=== PATIENT | male | born 1995 | race Caucasian/White ===

== ENCOUNTER 2016-05-12 11:45 | Emergency (ER) | payer BC ==
--- NOTE | ~2016-05-12 | ER ---
PATIENT'S NAME: AISHA OCHOAIN Lois [facility] AGE: 20 Y [address] ROOM: [place] [address] LOCATION: [facility] ADMIT DATE: 05/12/2016 ER/Outpatient Report DISCHARGE DATE: 05/12/2016 FAMILY PHYSICIAN: Marli Mendes MD ATTENDING PHYSICIAN: Piter Higgins Time of Arrival: 1145 hours. Time of Evaluation: 1150 hours. CHIEF COMPLAINT: Abdominal pain. HISTORY OF PRESENT ILLNESS: The patient is a 20-year-old male, who presents to the emergency department today with a chief complaint of abdominal pain. He is a type 1 diabetic. He reports abdominal pain started at 9:00 a.m. this morning. He reports his hemoglobin A1C is 14. He reports some nausea. He did have episode of vomiting, small amount of blood, a week ago but has not had any since. He denies any dark tarry stools or blood in the stool. Denies any fevers or chills. Denies any urinary frequency, urgency, or painful urination. It is a crampy sharp type pain, currently 4/10 in severity. PAST MEDICAL HISTORY: Insulin-dependent diabetes, celiac disease, anxiety. PAST SURGICAL HISTORY: Bilateral myringotomy tubes. SOCIAL HISTORY: The patient denies any tobacco or alcohol use. Does report some marijuana use. ALLERGIES: NONE. MEDICATIONS: 1. Insulin pump. 2. Humalog. REVIEW OF SYSTEMS: All systems are reviewed by myself and are negative with the exception of those discussed in the HPI and past medical history. PHYSICAL EXAMINATION: VITAL SIGNS: Weight 75.5 kg, blood pressure 129/74, pulse 82, respiratory PATIENT'S NAME: NORY OCHOA [facility] AGE: 20 Y [address] ROOM: [place] [address] LOCATION: [facility] ADMIT DATE: 05/12/2016 ER/Outpatient Report DISCHARGE DATE: 05/12/2016 FAMILY PHYSICIAN: Marli Mendes MD ATTENDING PHYSICIAN: Piter Higgins rate 20, temperature 97.8, oxygen saturation 98% on room air. GENERAL: The patient is a 20-year-old male, who appears stated age, in no acute distress at this time. HEENT: Head: Normocephalic, atraumatic. Pupils are equal, round, and reactive to light and accommodation. Extraocular motions are intact. Nares are patent bilaterally. TMs are clear. Oropharynx is clear. NECK: Supple. There is no nuchal rigidity. CARDIOVASCULAR: Regular rate and rhythm. No murmurs, rubs, or gallops. LUNGS: Clear to auscultation bilaterally. No wheezes, rales, or rhonchi. ABDOMEN: Soft, nontender, and nondistended. No rebound, rigidity, or guarding. MUSCULOSKELETAL: The patient moves all 4 extremities. 5/5 muscle strength. SKIN: Warm and dry. There are no rashes or lesions noted. LABORATORY DATA AND X-RAYS: Venous blood gas 7.39, 57, 37, 35, 7.8. CBC is normal. CMP is normal. LFTs are normal. IMPRESSION: 1. Acute nonsurgical diffuse abdominal pain. 2. Initial visit. EMERGENCY DEPARTMENT COURSE: The patient was brought back to the examination room. Seen and evaluated by myself. An IV was established. The patient was given a liter of normal saline. Laboratory analysis and imaging are obtained as described above. The results are unremarkable. I have discussed results with the patient. His abdominal exam is repeated. He continues to have a nonsurgical abdominal exam at this time. I did discuss the results. I have recommended he follows up with Dr. Mendes in 2 to 3 days for re-evaluation. I have discussed return to care instructions including worsening symptoms or any other concerns to return to the emergency department as soon as possible. The patient is agreeable without further questions. DISPOSITION: The patient discharged home in good condition. DO CUATE REYES/rianna PATIENT'S NAME: NORY OCHOA [facility] AGE: 20 Y [address] ROOM: [place], [place] [address] LOCATION: [facility] ADMIT DATE: 05/12/2016 ER/Outpatient Report DISCHARGE DATE: 05/12/2016 FAMILY PHYSICIAN: Marli Mendes MD ATTENDING PHYSICIAN: Piter Higgins /[id number] d: 05/12/161942 t: 05/15/161934, OUTPATIENT REPORT
[~2016-05-12 11:45] MED LIST: ADVIL200 MG PO; HUMALOG100 UNIT/1 SUB-Q; PROZAC20 MG PO; TRESIBA FL100 UNIT/1 SUB-Q; TRESIBA SUB-Q; TYLENOL325 MG PO
[2016-05-12 12:12] LABS: BASOPHIL % 0.7 %; EOSINOPHIL # 0.1 K/uL (0.0-0.5); EOSINOPHIL % 2.2 %; HEMATOCRIT 44.1 % (37.0-53.0); HEMOGLOBIN 14.9 g/dL (12.0-17.0); IMMATURE GRANULOCYTE % 0.7 %; LYMPHOCYTE # 2.3 K/uL (0.8-4.0); LYMPHOCYTE % 42.1 %; MCH 29.6 pg (27.0-34.0); MCHC 33.8 gm/dL (32.0-36.5); MCV 87.5 fl (83.0-98.0); MONOCYTE # 0.4 K/uL (0.0-1.0); MONOCYTE % 7.8 %; MPV 9.5 fl (9.4-12.4); NEUTROPHIL # (ANC) 2.5 K/uL (1.4-9.0); NEUTROPHIL % 46.5 %; NRBC % 0 /100WBC (0-0.00); PLATELET COUNT 278 K/uL (150-450); RBC 5.04 M/uL (4.00-6.00); RDW-CV 10.8 % (11.9-14.6); WBC 5.4 K/uL (4.0-11.0)
[2016-05-12 12:13] LABS: BICARBONATE 34.5 mmol/L (18.0-23.0); PCO2 57 mmHg (35-45); PO2 37 mmHg (80-90)
[2016-05-12 12:34] LABS: ALBUMIN 3.4 gm/dL (3.5-5.0); ALK PHOS 97 IU/L (33-138); ALT 30 IU/L (12-78); ANION GAP 13.7 (10.0-19.0); AST 22 IU/L (10-40); BLOOD UREA NITROGEN 5 mg/dL (6-24); CALCIUM 8.9 mg/dL (8.5-10.5); CHLORIDE 101 mMol/L (96-110); CO2 29 mMol/L (22-32); CREATININE 0.7 mg/dL (0.6-1.3); ESTIMATED GFR (MDRD EQUATION) > 60; POTASSIUM 3.7 mMol/L (3.7-5.1); SODIUM 140 mMol/L (135-145); TOTAL BILIRUBIN 0.5 mg/dL (0.0-1.5); TOTAL PROTEIN 7.3 g/dL (6.0-8.4)
== END 2016-05-12 13:00 | disposition disaster alternative care site (69) ==
LOC: GMED 11:45
PROVIDERS: Emergency Medicine
DX: R10.9 Unspecified abdominal pain (principal); E10.9 Type 1 diabetes mellitus without complications; K90.0 Celiac disease; F41.9 Anxiety disorder, unspecified
CPT/HCPCS: J7030

== ENCOUNTER 2016-06-26 14:16 | Observation (INO) | payer BC ==
[~2016-06-26] VITALS: Ht 182.9 cm; Wt 76.2 kg
--- NOTE | ~2016-06-26 | HP ---
PATIENT'S NAME: NORY OCHOA [facility] AGE: 20 Y [address] ROOM: [place] [address] LOCATION: [facility] ADMIT DATE: 06/26/2016 History & Physical DISCHARGE DATE: FAMILY PHYSICIAN: Marli Mendes MD ATTENDING PHYSICIAN: KATHY POSEY DATE OF SERVICE: CHIEF COMPLAINT: Hyperglycemia. HISTORY OF PRESENT ILLNESS: This is a 20-year-old male with a type 1 diabetes, on insulin pump, and also has celiac disease who says that this morning he woke up with nausea and vomited once of nonbloody emesis. He checked the fingerstick glucose at home was 336 and this was before the breakfast. He checked the fingerstick again later on was 425 then he ate some food and then gave the bolus of 10 units of insulin from his insulin pump. He then called his primary care physician and he was referred here to the emergency room. The patient denies any fever or chills. He states that he has some dry cough just today, but it is not that bothersome and he denies any chest pain. He chronically has some mild diffuse abdominal pain that is on and off and this is chronic. He has a scheduled appointment to see Gastroenterology for consultation in [place] in July of 2016. His last bowel movement was this morning and it was normal. Currently, he does not feel nauseous. He denies any urinary frequency, urgency, or dysuria. He also denies fever or chills. He does not check fingerstick glucose at home with the same frequency. He sometimes checks twice or thrice daily. The patient states that he is compliant with a celiac diet. REVIEW OF SYSTEMS: As mentioned in history of present illness. All other systems reviewed and negative except those mentioned in history of present illness. PAST MEDICAL HISTORY: 1. Diabetes mellitus, type 1, on insulin pump. 2. Celiac disease. ALLERGIES: NO KNOWN DRUG ALLERGIES. HOME MEDICATIONS: 1. Insulin pump. 2. Tylenol 325 mg 2 tablet p.o. q.4 h. p.r.n. for pain or fever. PATIENT'S NAME: NORY OCHOA [facility] AGE: 20 Y [address] ROOM: [place] [address] LOCATION: [facility] ADMIT DATE: 06/26/2016 History & Physical DISCHARGE DATE: FAMILY PHYSICIAN: Marli Mendes MD ATTENDING PHYSICIAN: KATHY POSEY SOCIAL HISTORY: The patient denies any cigarette or illegal drug use. He drinks alcohol occasionally, but he denies any alcohol abuse. He uses marijuana on and off. PAST SURGICAL HISTORY: None. FAMILY HISTORY: Father is healthy and mother has left bundle-branch block and hypertension. PHYSICAL EXAMINATION: VITAL SIGNS: At the time of my dictation, temperature 97, heart rate 80, blood pressure 120/75, respirations 14, and saturation 100% on room air. GENERAL APPEARANCE: Alert and oriented x3, in no acute distress. HEENT: Pupils are equally round and reactive to light. Extraocular muscles intact. Anicteric sclerae. Nasal turbinates are normal bilaterally. Moist oral mucosa. NECK: No JVD. CARDIOVASCULAR: Regular rate and rhythm. Normal S1, S2. No murmur, no rubs, no gallops. RESPIRATORY: Clear to auscultation. No rales, no rhonchi, no wheezing, and no crackles. ABDOMEN: Soft, mildly tender diffusely, bowel sounds present, no palpable mass, no hepatosplenomegaly. Bowel sounds present. EXTREMITIES: No edema in upper or lower extremities. NEUROLOGIC: Grossly nonfocal. SKIN: No ulcer, no rash, no cyanosis. LABORATORY DATA: ABG on room air showed pH 7.4, pCO2 36, pO2 103, bicarbonate 22.3, and satting at 98% on room air. Lactic acid 4.0. White blood cell 8.1, hemoglobin 16.2, hematocrit 46.5, MCV 85.5, platelets 274, glucose 497, BUN 23, creatinine 1.4. Sodium 132, potassium 4.1, chloride 95, CO2 21, calcium 8.9, total protein 7.7, albumin 4.0, AST 20, ALT 23, alkaline phosphatase 120, total bilirubin 0.8, anion gap 20.1, globulin 3.7, and GFR more than 60. Hemoglobin A1c 11.6. Urinalysis show negative for leukocyte, negative nitrite, and rare bacteria. White blood cells 5-10, glucose 1000, and ketone 50. Amylase 24, lipase 76. Procalcitonin less than 0.05. Acetone positive. IMAGING DATA: Chest x-ray on admission show normal heart size, faint opacity at the left base could reflect an early infiltrate, no effusion. ASSESSMENT AND PLAN: 1. Regarding his hyperglycemia in the setting of type 1 diabetes on insulin PATIENT'S NAME: NORY OCHOA [facility] AGE: 20 Y [address] ROOM: [id number] [place], [place] [address] LOCATION: [facility]PCU ADMIT DATE: 06/26/2016 History & Physical DISCHARGE DATE: FAMILY PHYSICIAN: Marli Mendes MD ATTENDING PHYSICIAN: KATHY POSEY pump: His bicarbonate and also anion gap do not meet the criteria for diabetic ketoacidosis. I will treat him with insulin drip and use the insulin drip protocol and NS for hyperglycemia and check fingerstick every hour and titrate insulin rate per protocol. When the fingerstick glucose is 200, I am going to switch to subcutaneous insulin with a.c. h.s. aspart and also do a long-acting Levemir as well. For now, I am going to turn off insulin pump. I will consult personal development educator in the morning to resume and transition from the subcutaneous insulin regimen to insulin pump and assess medication noncompliance. Patient says that his insulin pump setting and dose were recently changed by his provider. Clinically he loos good and not septic looking and saturating at 97% on room air with clear lung kil[place]. Chest x-ray on admission mentioned faint opacity in left lung base and could be early infiltrate, will start po levaquin for CAP coverage in case this would be the trigger for his hyperlgycemia. I will also check the influenza nasal antigen swab. He denies any dysuria. Urinalysis does not look like urinary tract infection. Therefore, I am not going to order urine culture since he also denies dysuria. Will also draw 2 sets of blood cultures to rule out bacteremia as the trigger. Patient can have a celiac diet. Further plan depends on clinical course. Sputum culture and gram stain if he coughs and mucinex for cough. Incentive spirometry also. 2. For his chronic diffuse abdominal pain: It can be seen in the patient with hyperglycemia and DKA in type 1 diabetes. I am going to get a CT scan of abdomen and pelvis without contrast to evaluate. I do not see any CT of abdomen and pelvis in the [facility]. Patient is scheduled to see a GI specialist for consultation in July [address] [place] abdomen pelvis can also visualize the lower lung kilg[place] as well. 3. Regarding his deep vein thrombosis prophylaxis: He will be on compression devices. He is very young. He can ambulate. Time spent in care on the day of admission 35 minutes including chart review, interviewing the patient, addressing all the questions and concerns that the patient had, and going over the plan of care with the patient and family members. KATHY POSEY MD CC/rianna /[id number] D: [id number] T: [id number] HISTORY & PHYSICAL
--- NOTE | ~2016-06-26 | ER ---
PATIENT'S NAME: NORY OCHOA [facility] AGE: 20 Y [address] ROOM: [place] [address] LOCATION: GPCU ADMIT DATE: 06/26/2016 ER/Outpatient Report DISCHARGE DATE: FAMILY PHYSICIAN: Marli Mendes MD ATTENDING PHYSICIAN: KATHY POSEY TIME OF ARRIVAL: 14:18. TIME OF EXAMINATION: 14:26. CHIEF COMPLAINT: Elevated blood sugar. HISTORY OF PRESENT ILLNESS: The patient states that he woke up at around 11 o'clock today and vomited right away, and then he did check his blood sugar. His head felt foggy. He states his monitor read high. He has an insulin pump. He gave himself 2.5 units, that was at 11:05. He re-checked his blood sugar at 12:12, it was 363. He did go ahead and eat something, and then at 12:58, it was up to 445. He gave himself 10.9 units with the pump. He states he has not vomited anymore. He did have some loose stools. He was nauseated off and on, but that is better. He states he applied a new insulin pump this morning upon waking. ALLERGIES: HE HAS NO KNOWN ALLERGIES. CURRENT MEDICATIONS: On his chart and reviewed by me. PAST MEDICAL HISTORY: Includes insulin-dependent diabetes and celiac disease. He states he got diagnosed with those illnesses in 2013. SURGERIES: None. SOCIAL HISTORY: He denies the use of tobacco, drugs, or alcohol. REVIEW OF SYSTEMS: All were negative other than those mentioned in the HPI. PHYSICAL EXAMINATION: PATIENT'S NAME: NORY OCHOA [facility] AGE: 20 Y [address] ROOM: [address] [address] LOCATION: GPCU ADMIT DATE: 06/26/2016 ER/Outpatient Report DISCHARGE DATE: FAMILY PHYSICIAN: Marli Mendes MD ATTENDING PHYSICIAN: KATHY POSEY VITAL SIGNS: He weighed 76.9 kg. Blood pressure was 128/73, pulse was 113, respirations were 18, temperature was 98.3, and O2 saturation was 96% on room air. GENERAL: He is awake, alert, and oriented x4. SKIN: [place], warm, and dry. CHEST: Respirations were even and nonlabored. HEENT: TMs are clear. Nasal is clear. Oropharynx is clear. NECK: Supple. No lymphadenopathy. PULMONARY: Lung sounds are clear throughout. HEART: Regular rate and rhythm. ABDOMEN: Soft and nondistended. Bowel sounds are present. EMERGENCY DEPARTMENT COURSE: Saline lock was initiated with normal saline at a wide-open rate. He was given Zofran 4 mg IV. Accu-Chek was completed. It was 469. CBC was within normal limits. Acetone is positive. Sodium was 132 with potassium of 4.1, chloride of 95, and glucose with the chem panel was 497. The patient was given 10 units of regular insulin IV. BUN is 23 with a creatinine of 1.4. Amylase was 24 and lipase was 76. Venous pH is 7.4 and CO2 is 36 with a bicarb of 22.3. Procalcitonin was less than 0.05. Clean-catch UA was obtained, does show a 1000 of glucose and 50 of ketones. EKG was done, sinus tachycardia. Dr. Posey was contacted regarding the patient. The patient's insulin pump was removed. The patient is to be placed in observation in PCU, followed by the hospitalist. IMPRESSION: 1. Diabetic ketoacidosis. 2. Hyperglycemia. PLAN: Placed in observation for care of the hospitalist. Insulin drip was started per protocol as recommended by Dr. Posey. MAN FLOR APRN FOR MD PATRICE CRANE/tranl /[id number] d: 06/27/16 0245 t: 07/02/16 0649, OUTPATIENT REPORT
--- NOTE | ~2016-06-26 | DS ---
PATIENT'S NAME: NORY OCHOA [facility] AGE: 20 Y [address] ROOM: [id number] [place], [place] [address] LOCATION: GPCU ADMIT DATE: 06/26/2016 Discharge Summary DISCHARGE DATE: 06/27/2016 FAMILY PHYSICIAN: Marli Mendes MD ATTENDING PHYSICIAN: Adair Ndiaye FINAL DIAGNOSES: 1. Diabetes type 1 with hyperglycemia. 2. Chronic diffuse abdominal pain. 3. Celiac disease. Please see the history and physical dictated by Dr. Ndiaye for details of admission. LABORATORY DATA: On admission, pH 7.4, pCO2 of 36, pO2 of 103. On admission; sodium 132, potassium 4.1, chloride 95, CO2 of 21, glucose 497, BUN 23, creatinine 1.4. Liver enzymes were normal. Amylase and lipase were in the normal range. Hemoglobin A1c was 11.6. His white blood cell count on admission is 8.1, hemoglobin 16.2, hematocrit 46.5, platelet count 274. Most prior to discharge white blood cell count 6.6. RADIOLOGIC DATA: CT scan of the abdomen and pelvis; no free air, no evidence of appendicitis, clear lung bases. HOSPITAL COURSE: The patient was admitted to the hospital after presenting with hyperglycemia and abdominal pain. He notes that he has been trying to keep his blood sugars under control, but has jest been having problems with them creeping up and he was feeling poorly. In the emergency room, he was found to not be in DKA. He was started on aggressive IV hydration and put on IV insulin drip. His blood sugars did come under better control, and on the second hospital day morning, we were able to restart his Omnipod. After restarting the Omnipod, his blood sugars were trending downward. He overall was feeling much better and voiced a desire to be discharged. There was no source of an acute worsening of his blood sugars. The patient felt very strongly that his diabetic control was related to his chronic abdominal pain and stated that he has a consultation on 07/23/2016 in [place] with a construction ironworker helper. After speaking with him in the presence of his mother, it was felt that he was stable for discharge to home. DISCHARGE INSTRUCTIONS: He will follow up with Dr. Marli Mendes at [facility], to make an appointment in 3 days. He was encouraged to get an appointment to see Claudia Santo tomorrow to discuss his blood sugars. We did talk at length about plans that he would have in case his blood sugars were starting to get high and get out of control. It was also felt at this time that he did not need an antibiotic on discharge. He had received Levaquin in- house, but it was felt there was no source of infection. He did state that he PATIENT'S NAME: NORY OCHOA [facility] AGE: 20 Y [address] ROOM: [place] [address] LOCATION: GPCU ADMIT DATE: 06/26/2016 Discharge Summary DISCHARGE DATE: 06/27/2016 FAMILY PHYSICIAN: Marli Mendes MD ATTENDING PHYSICIAN: Adair Ndiaye would contact his mom or go to the clinic should he have any worsening of his symptoms. A note was written for his work stating that he was in the hospital on 06/26/2016 and 06/27/2016 and that he would need to see his primary care provider or the clinical systems educator on 06/28/2016. PROGNOSIS: Overall prognosis at discharge fair. SPIKE ALSTON MD LAW/modl /[id number] CC: MD Claudia [place], [place] [address] [place] [id number] d: 06/28/16 0424 t: 06/28/16 1827, DISCHARGE SUMMARY
[2016-06-26 14:43] LABS: BASOPHIL % 0.5 %; EOSINOPHIL % 0.5 %; HEMATOCRIT 46.5 % (37.0-53.0); HEMOGLOBIN 16.2 g/dL (12.0-17.0); IMMATURE GRANULOCYTE # 0.1 K/uL (0.0-0.3); IMMATURE GRANULOCYTE % 0.6 %; LYMPHOCYTE # 1.7 K/uL (0.8-4.0); LYMPHOCYTE % 21.3 %; MCH 29.8 pg (27.0-34.0); MCHC 34.8 gm/dL (32.0-36.5); MCV 85.5 fl (83.0-98.0); MONOCYTE # 0.4 K/uL (0.0-1.0); MPV 10.3 fl (9.4-12.4); NEUTROPHIL # (ANC) 5.8 K/uL (1.4-9.0); NEUTROPHIL % 72.1 %; NRBC % 0 /100WBC (0-0.00); PLATELET COUNT 274 K/uL (150-450); RBC 5.44 M/uL (4.00-6.00); RDW-CV 11.3 % (11.9-14.6); WBC 8.1 K/uL (4.0-11.0)
[2016-06-26 14:46] LABS: BICARBONATE 22.3 mmol/L (18.0-23.0); PCO2 36 mmHg (35-45); PO2 103 mmHg (80-90)
[2016-06-26 15:07] LABS: ALK PHOS 120 IU/L (33-138); ALT 23 IU/L (12-78); BLOOD UREA NITROGEN 23 mg/dL (6-24); CALCIUM 8.9 mg/dL (8.5-10.5); CHLORIDE 95 mMol/L (96-110); CO2 21 mMol/L (22-32); CREATININE 1.4 mg/dL (0.6-1.3); ESTIMATED GFR (MDRD EQUATION) > 60; SODIUM 132 mMol/L (135-145); TOTAL PROTEIN 7.7 g/dL (6.0-8.4)
[2016-06-26 15:11] LABS: ANION GAP 20.1 (10.0-19.0)
[2016-06-26 15:12] LABS: AST 20 IU/L (10-40); POTASSIUM 4.1 mMol/L (3.7-5.1); TOTAL BILIRUBIN 0.8 mg/dL (0.0-1.5)
[2016-06-26 15:53] LABS: BILIRUBIN URINE NEGATIVE (NEGATIVE); BLOOD URINE 10 /UL (NEGATIVE); COLOR URINE YELLOW (YELLOW); GLUCOSE URINE 1000 mg/dL (NEGATIVE); KETONE URINE 50 mg/dL (NEGATIVE); LEUKOCYTES URINE NEGATIVE /UL (NEGATIVE); NITRITE URINE NEGATIVE (NEGATIVE); PROTEIN URINE 100 mg/dL (NEGATIVE); TURBIDITY URINE CLEAR (CLEAR); UROBILINOGEN URINE NORMAL (NORMAL)
[2016-06-26 16:12] LABS: RBC URINE 0-2 #/HPF (NEGATIVE)
[2016-06-26 16:13] LABS: AMORPHOUS URINE 1+ (NEGATIVE); BACTERIA URINE RARE (NEGATIVE); YEAST URINE FEW (NEGATIVE)
--- NOTE | 2016-06-26 20:33 | NUR ---
Significant Event: see admin note. He is feeling a lot better, is no longer nauseated. VSS. He does have fruity breath odor. A&O X3. Denies pain. Family present upon admit. Insulin gtt per protocol, currently running 3/units an hour. Follow up:
--- NOTE | 2016-06-27 04:18 | NUR ---
Significant Event: Patient alert and oriented x3. Up independent in room. Mom at bedside. Vitals stable on room air. Is now accuchecks ACHS on moderate scale. Right hand IV running NS. No complaints of pain or nausea. At beginning of shift was very anxious and tearful, took a shower and has been much calmer since. Mom stated patient has "a lot of mental health issues". Chest xray showed left infiltrate, started on po levaquin, IS and mucinex if needed. Lungs clear and no cough. Cooperative with cares Follow up: please instruct IS use 10x/hr, diabetic educators to see today
[2016-06-27 08:37] LABS: BASOPHIL % 0.6 %; EOSINOPHIL # 0.2 K/uL (0.0-0.5); EOSINOPHIL % 2.6 %; HEMOGLOBIN 14.5 g/dL (12.0-17.0); IMMATURE GRANULOCYTE # 0.1 K/uL (0.0-0.3); IMMATURE GRANULOCYTE % 0.8 %; LYMPHOCYTE # 2.4 K/uL (0.8-4.0); LYMPHOCYTE % 36.6 %; MCHC 34.5 gm/dL (32.0-36.5); MONOCYTE # 0.5 K/uL (0.0-1.0); MONOCYTE % 7.4 %; NEUTROPHIL # (ANC) 3.4 K/uL (1.4-9.0); NRBC % 0 /100WBC (0-0.00); RBC 4.83 M/uL (4.00-6.00); RDW-CV 11.3 % (11.9-14.6); WBC 6.6 K/uL (4.0-11.0)
[2016-06-27 08:39] LABS: PLATELET COUNT 215 K/uL (150-450)
[2016-06-27 08:52] LABS: ANION GAP 12.9 (10.0-19.0); BLOOD UREA NITROGEN 16 mg/dL (6-24); CALCIUM 8.1 mg/dL (8.5-10.5); CHLORIDE 106 mMol/L (96-110); CO2 27 mMol/L (22-32); CREATININE 0.8 mg/dL (0.6-1.3); ESTIMATED GFR (MDRD EQUATION) > 60; MAGNESIUM 1.8 mg/dL (1.8-2.6); PHOSPHORUS 2.5 mg/dL (2.5-4.9); POTASSIUM 3.9 mMol/L (3.7-5.1)
[2016-06-27 08:56] LABS: SODIUM 142 mMol/L (135-145)
--- NOTE | 2016-06-27 10:53 | NUR ---
[facility] note: 0930 Visited with mother at bedside, patient is currently asleep. Mother reports that patient was not feeling well before being admitted to the hospital, can't identify reason for DKA. Mother states patient is doing much better with is diabetes control, testing blood sugars more frequently and taking better care of himself than in previous months. Had CT scan of abdomin last evening, as mother reports patient has been having some abdominal "issues recently" Was using an Omni Pod insulin pump at home and does have supplies, so they have adequate supplies for patient to restart his omni pod. Mother is provided with the Diabetes survival skills checklist and CDE asks that she and patient complete this form, CDE will check back with them later in the day to assess educational needs. According to mother, patient has been seeing an Houseman in [place] on a regular bases and has another appt. scheduled sometime in July. Patient also sees Dr. Mendes in Family Practice and has seen Claudia Riley RN, CDE there for assistance with his diabetes care. Anticipate this will be their plan for post hospital diabetes care. Will continue to follow.
--- NOTE | 2016-06-27 12:05 | NUR ---
Introduced self and CM role to Michel and his mom who were at bedside. Michel tells me that he lives at home and plans on returning there when he is cleared to do so. He does his own medications at home, will continue to do this upon dismissal. Mom states that he has good support at home and there is no concerns about him returning back when he is able to. No other questions, needs or concerns. CM to continue to follow and assist. Plan home.
--- NOTE | 2016-06-27 14:59 | NUR ---
Spoke with Dr. Ravi and agreed that we could start patient back on insulin pump, Omni Pod. Mother went home to get supplies for pump and Humalog insulin. Assisted patient in restarting his pump after he signed consent to manage his own pump while here in hospital and record all results of blood sugars and insulin doses. Order left on chart for MD to sign when she makes rounds this afternoon. Temp basal set until 2200 this evening due to Levemir dose given on 06/26/16 at 2200. Patient is upset that he can't go home, but discussed importance of making sure his blood sugars are well controlled and he is feeling better. Anticipate dismissal 06/28/16
--- NOTE | 2016-06-27 16:24 | NUR ---
Significant Event: VSS AND RA. DENIES PAIN. INSULIN PUMP RESTARTED THIS AFTERNOON AROUND 1500 BY RAMP SERVICE MAN, DID TEACHING. MOTHER AT BEDSIDE. BS 124 AND 251. Follow up: CONTINUE PLAN OF CARE; ? D/C [facility].
== END 2016-06-27 19:50 | disposition disaster alternative care site (69) ==
LOC: GMED 14:16 → GPCU 16:00
PROVIDERS: Nurse Practitioner Family; ADMIT Internal Medicine
DX: E10.65 Type 1 diabetes mellitus with hyperglycemia (principal); E10.10 Type 1 diabetes mellitus with ketoacidosis without coma; R10.9 Unspecified abdominal pain; K90.0 Celiac disease
CPT/HCPCS: G0378; J2405; J7030

== ENCOUNTER → 2016-07-24 | Outpatient (CLI) | payer BC | END | disposition disaster alternative care site (69) | LOC: GRAD 07:45 | DX: K92.1 Melena (principal); K62.5 Hemorrhage of anus and rectum; K90.0 Celiac disease; R10.84 Generalized abdominal pain; R11.2 Nausea with vomiting, unspecified ==